=== PATIENT | female | born 1960 | race Caucasian/White ===

== ENCOUNTER 2022-07-26 06:09 | Day surgery (SDC) | payer BC ==
[2022-07-23 15:13] VITALS: BMI 25.5
[~2022-07-26 06:09] MED LIST: ACETAMINOPHEN TAB 500 MG TAB PO PRN; DEXAMETHASONE SOD PHOSPHATE 4 MG/ML 1 ML VIAL IV ONE; HEPARIN SODIUM,PORCINE/PF 5,000 UNIT/0.5 ML SYRINGE SQ PRN; LACTATED RINGERS 1,000 ML IV SCH; LIDOCAINE 1% (10MG/ML) FOR IV START INTRADERMA PRN; MIDAZOLAM 2 MG/2 ML VIAL IV PRN; ONDANSETRON 4 MG/2 ML VIAL IVP ONE; Pre Op ABX Message 1 EACH MISC MISCELLANE ONE
[2022-07-26] MEDS ORDERED: HYDROmorphone 0.5 MG/0.5 ML SYRINGE IVP PRN (07:00)
--- NOTE | 2022-07-26 07:36 | P.GSHP ---
History of Present Illness H&P Date: 07/26/22 Chief Complaint: Right flank lipoma 62-year-old female here for excision right flank lipoma. Patient has had this excised once 10 years ago. Since then has been slowly growing back. She says she has pain that radiates anteriorly and posteriorly from that location. No numbness. Past Medical History Past Medical History: Asthma, GERD/Reflux, Hearing Disorder / Deafness, Hypertension, Thyroid Disorder Additional Past Medical History / Comment(s): Hashimotos. Thyroid Eye Disease. Graves Disease. Deviated septum. Environmental allergies. Hiatal hernia. Colitis. Some hearing loss. History of Any Multi-Drug Resistant Organisms: None Reported Additional Past Surgical History / Comment(s): Thyroidectomy, colonoscopy X3. Past Anesthesia/Blood Transfusion Reactions: No Reported Reaction Additional Past Anesthesia/Blood Transfusion Reaction / Comment(s): With colonscopies took a while to wake up. Past Psychological History: No Psychological Hx Reported Smoking Status: Current every day smoker Past Alcohol Use History: Occasional Additional Past Alcohol Use History / Comment(s): Has been an on and off smoker, currently smokes 1/2 ppd, trying to quit. Past Drug Use History: Marijuana Additional Drug Use History / Comment(s): Occasional Marijuana use. Aware no use 24 hrs prior to procedure. - Past Family History Mother Family Medical History: No Reported History Medications and Allergies Home Medications Medication Instructions Recorded Confirmed Type Calcium With Vitamin D 1 tab PO DAILY 07/23/22 07/23/22 History Cetirizine HCl [Zyrtec] 10 mg PO DAILY 07/23/22 07/23/22 History Curcumin (Unknown Dose) 1 tab PO DAILY 07/23/22 07/23/22 History Levothyroxine Sodium 100 mcg PO QAM 07/23/22 07/23/22 History Multivitamins, Thera [Multivitamin 1 tab PO DAILY 07/23/22 07/23/22 History (formulary)] NIFEdipine [Adalat CC] 60 mg PO QAM 07/23/22 07/23/22 History Vitamin A 250 mcg PO DAILY 07/23/22 07/23/22 History Allergies Allergy/AdvReac Type Severity Reaction Status Date / Time propranolol Allergy "Caused Verified 07/23/22 14:46 Asthma" Surgical - Exam Vital Signs Temp Pulse Resp 98.3 F 89 20 07/26/22 06:47 07/26/22 06:47 07/26/22 06:47 Physical exam: General: Well-developed, well-nourished HEENT: Normocephalic, sclerae nonicteric Abdomen: Nontender, nondistended, 3 x 4 cm lipomatous mass right flank with pre vious scar present, mild tenderness Extremities: No edema Neuro: Alert and oriented Assessment and Plan (1) Right flank mass Narrative/Plan: 62-year-old female with lipomatous mass right flank. We'll proceed with excision at this time. Risks of bleeding, infection, scarring, recurrence reviewed. She understands wished to proceed Current Visit: Yes Status: Acute Code(s): R19.00 - INTRA-ABD AND PELVIC SWELLING, MASS AND LUMP, UNSP SITE SNOMED Code(s): 736987644
[2022-07-26] MEDS ORDERED: fentaNYL (PF) 50 MCG/ML 2 ML AMP ONE (07:37)
[2022-07-26] MEDS ORDERED: GLYCOPYRROLATE 0.2 MG/ML 2 ML VIAL ONE (07:37)
[2022-07-26] MEDS ORDERED: PHENYLEPHRINE-0.9% NACL SYG 1,000 MCG/10 ML SYRINGE ONE (07:37)
[2022-07-26] MEDS ORDERED: LIDOCAINE 2% INJ 20 MG/ML (2 ML VIAL) ONE (07:37)
[2022-07-26] MEDS ORDERED: PROPOFOL 10 MG/ML 20 ML VIAL IV ONE (07:37)
[2022-07-26] MEDS ORDERED: MIDAZOLAM 2 MG/2 ML VIAL ONE (07:37)
[2022-07-26] MEDS ORDERED: SODIUM CHLORIDE 0.9% 100 ML BAG ONE (07:38)
[2022-07-26] MEDS ORDERED: ceFAZolin 1,000 MG VIAL ONE (07:38)
[2022-07-26] MEDS ORDERED: BUPIVACAINE (PF) 0.25% 30 ML VIAL SQ ONE ×2 (08:02)
[2022-07-26] MEDS ORDERED: NALOXONE 0.4 MG/ML 1 ML VIAL IV PRN (08:26)
--- NOTE | 2022-07-26 08:29 | P.OP ---
Date of Procedure: 07/26/22 Procedure(s) Performed: PREOPERATIVE DIAGNOSIS: Right flank lipoma POSTOPERATIVE DIAGNOSIS: Same PROCEDURE: Excision right flank lipoma with intermediate closure SURGEON: Tommy EBL: 5 mL ANESTHESIA: Gen. COMPLICATIONS: None OPERATIVE PROCEDURE: Patient placed in the operative table in the supine position. The right flank was prepped and draped sterilely. An elliptical incision was made encompassing the previous scar site. A subcutaneous lipomatous mass was identified. This was long and slender. This measured 11 cm in length. This only had a with about 2-3 cm. This was fully excised and sent to pathology. The subcutaneous tissues were closed using interrupted 3-0 Vicryl sutures. The incision which measured 7 cm was closed using a running 4-0 Monocryl subcuticular stitch. Skin glue was then applied DISPOSITION: Stable to recovery room
[2022-07-26 08:44] VITALS: RESP 16; TEMP 97
[2022-07-26 09:18] VITALS: BP 133/80; PULSE 74
== END 2022-07-26 09:39 | disposition home or self-care (01) ==
LOC: OR 06:09
PROVIDERS: ATTEND Surgery
DX: D17.1 Benign lipomatous neoplasm of skin and subcutaneous tissue of trunk (principal); J45.909 Unspecified asthma, uncomplicated; K21.9 Gastro-esophageal reflux disease without esophagitis; I10 Essential (primary) hypertension; E07.9 Disorder of thyroid, unspecified; F17.210 Nicotine dependence, cigarettes, uncomplicated; F12.90 Cannabis use, unspecified, uncomplicated; Z86.59 Personal history of other mental and behavioral disorders; Z79.899 Other long term (current) drug therapy
CPT/HCPCS: 21931; 88304; J2250; J1100; J2405; J0690; J3010; J2370; J2704; J1644; J2001